=== PATIENT | female | born 2005 | race Two or more races ===

== ENCOUNTER 2025-09-28 16:30 | Emergency (ER) | payer MEDICAID, OTHER ==
[~2025-09-28] VITALS: Ht 162.6 cm; Wt 49.1 kg
[2025-09-28] MEDS ORDERED: CYCL-837 PO (17:21)
[2025-09-28] MEDS ORDERED: IBUP-1454 PO (17:21)
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
[2025-09-28 17:26] VITALS: BP 96/67; PULSE 76; RESP 17; TEMP 98.7; O2SAT 98
== END 2025-09-28 17:33 | disposition home or self-care (01) ==
LOC: ER 16:30
DX: M79.18 Myalgia, other site (principal); Z88.0 Allergy status to penicillin